=== PATIENT | male | born 1960 | race Caucasian/White ===

== ENCOUNTER 2017-11-21 17:00 | Emergency (ER) | payer BC ==
[~2017-11-21] VITALS: Ht 172.7 cm; Wt 85.5 kg
[2017-11-21 17:02] VITALS: BP 123/80
[2017-11-21] MEDS ORDERED: DIPH,PERTUSS(ACELL),TET VAC/PF 0.5 ML IM-VACC ONE ×2 (17:30→17:35)
[2017-11-21] MEDS ORDERED: LIDOCAINE-MPF 1%, 5ML INFIL ONE (17:30)
[2017-11-21] MEDS ORDERED: LIDOCAINE-MPF 1%, 2ML ONE (17:35)
[2017-11-21] MEDS ORDERED: AMPICILLIN/SULBACTAM 1,500 MG IM ONE (18:00)
== END 2017-11-21 19:08 | disposition home or self-care (01) ==
LOC: ED 19:02
DX: S61.411A Laceration without foreign body of right hand, initial encounter (principal); W54.0XXA Bitten by dog, initial encounter; Y93.89 Activity, other specified; Y92.098 Other place in other non-institutional residence as the place of occurrence of the external cause; Y99.8 Other external cause status
CPT/HCPCS: 13132; 73130; 90715; 96372; 99284; J0295

== ENCOUNTER 2017-11-23 09:10 | Emergency (ER) | payer BC ==
[~2017-11-23] VITALS: Ht 172.7 cm; Wt 85.5 kg
[2017-11-23 09:14] VITALS: BP 148/94
== END 2017-11-23 10:36 | disposition home or self-care (01) ==
LOC: ED 10:15
DX: S61.451A Open bite of right hand, initial encounter (principal); W54.0XXA Bitten by dog, initial encounter; Y93.89 Activity, other specified; Y92.89 Other specified places as the place of occurrence of the external cause; Y99.8 Other external cause status
CPT/HCPCS: 99281